=== PATIENT | male | born 1975 | race Caucasian/White ===

== ENCOUNTER → 2020-01-07 | Outpatient (CLI) | payer BC ==
[~2020-01-07] MED LIST: METO-247 PO; PANT20TA58 PO
== END | disposition home or self-care (01) ==
LOC: LAB 13:50
PROVIDERS: ATTEND Nurse Anesthetist, Certified Registered
DX: Z01.818 Encounter for other preprocedural examination (principal); Z11.59 Encounter for screening for other viral diseases; K21.9 Gastro-esophageal reflux disease without esophagitis; R13.10 Dysphagia, unspecified
CPT/HCPCS: 36415; U0003

== ENCOUNTER → 2020-01-11 | Day surgery (SDC) | payer BC ==
[~2020-01-11] MED LIST changes: +IPRATRPIUM/ALBUTEROL 0.5/2.5MG 3 ML NEBU. NEB PRN; +MIDAZOLAM HCL PF 2 MG/2 ML VIAL. IV ONE; +ONDANSETRON PF 4 MG/2 ML VIAL. IV PRN; +PROPOFOL 10,000 MCG/ML (20ML) VIAL IV ONE
[2020-01-11] MEDS: IV RINGERS SOLUTION,LACTATED 1,000 ML IV SCH (11:24)
[2020-01-11 13:12] VITALS: BP 137/81
--- NOTE | 2020-01-15 15:08 | PATHOLOGY ---
[facility] Accession Number: [id number] . 01 Material submitted: . PART A: stomach - ANTRUM/GASTRITIS PART B: esophagus - DISTAL ESOPHAGUS. Modifiers: distal PART C: esophagus - PROXIMAL ESOPHAGUS. Modifiers: proximal . 02 Diagnosis: A. Gastric biopsies, antrum: - Congestion and slight chronic inflammation. . B. Esophageal biopsy, distal esophagus: - Segment of mildly hyperplastic squamous esophageal mucosa. . C. Esophageal biopsies, proximal esophagus: - Segments of squamous esophageal mucosa. (JPM:juan; 01/15/2020) S 01/15/2020 0923 Local . 02 Comment: Sections of the gastric biopsy reveal segments of gastric antral and antral/body transition mucosa showing congestion and slight chronic inflammation. A properly controlled immunoperoxidase stain for Helicobacter is negative for Helicobacter organisms. . Sections of the distal esophageal biosy reveal a segment of tangentially oriented mildly hyperplastic squamous esophageal mucosa. The findings are consistent with reflux changes. There is no evidence of an eosinophilic esophagitis, Marques's change, dysplasia, or malignancy. . Sections of the proximal esophageal biopsy reveal segments of tangentially oriented squamous esophageal mucosa. There is no evidence of an eosinophilic esophagitis, Marques's change, dysplasia, or malignancy. (JPM:juan; 01/15/2020) . . Special stain performed: Immunoperoxidase stain for Helicobacter on A1 . 02 Electronically signed: . Tolu Hernandez MD, Pathologist NPI- [id number] . 01 Gross description: . A. The specimen is received in formalin, labeled "Dordevic, Salty, antrum gastritis" and consists of 2 fragments of pink-ureña tissue measuring 0.2 x 0.2 cm and 0.5 x 0.3 cm which are entirely submitted in A1. . B. The specimen is received in formalin, labeled "Dordevic, Salty, distal esophagus" and consists of a translucent fragment of pink-ni tissue measuring 0.5 x 0.2 cm which is entirely submitted in B1. . C. The specimen is received in formalin, labeled "Dordevic, Salty, proximal esophagus" and consists of 2 translucent fragments of pink-ni tissue measuring 0.3 x 0.2 cm and 0.3 x 0.3 cm which are entirely submitted in C1. (SDY; 01/14/2020) SYU/SYU 01/14/2020 1824 Local . 02 Pathologist provided ICD-10: K29.50, K31.89 . 02 CPT . 038299, 011166, [id number], [id number] Specimen Comment: A courtesy copy of this report has been sent to [phone] Specimen Comment: [id number] Specimen Comment: Report sent to / DR MONTEJO Performed at: 01 [facility] [address] [facility] [address] [facility] [address], [place] [id number] MD Sebastián Kwan MD Phone: [phone] Performed at: 02 [facility] [address] [place], [place] [id number] MD Tolu Hernandez MD Phone: [phone]
== END | disposition home or self-care (01) ==
LOC: SURG 10:51
PROVIDERS: ATTEND Internal Medicine Gastroenterology
DX: R13.10 Dysphagia, unspecified (principal); K29.50 Unspecified chronic gastritis without bleeding; K31.89 Other diseases of stomach and duodenum; K22.2 Esophageal obstruction; K44.9 Diaphragmatic hernia without obstruction or gangrene; I10 Essential (primary) hypertension; I48.91 Unspecified atrial fibrillation; I49.9 Cardiac arrhythmia, unspecified; Z79.899 Other long term (current) drug therapy; Z98.890 Other specified postprocedural states
CPT/HCPCS: 43239; 43450; 88305; 88342; J2704; J7120